=== PATIENT | female | born 1965 | race Caucasian/White ===

== ENCOUNTER 2018-05-20 12:00 | Emergency (ER) | payer BC, OTHER ==
[2018-05-20] MEDS ORDERED: XYLOCAINE 2% HCL 20 ML MDV IJ ONE (12:24)
[2018-05-20] MEDS ORDERED: Xylocaine-Mpf 2% 5 Ml Vial IJ ONE (12:24)
--- NOTE | 2018-05-20 12:24 | ERPHSYRPT ---
- History of Present Illness Time Seen by Provider: 05/20/18 12:15 Source: patient Exam Limitations: clinical condition Patient Subjective Stated Complaint: cut middle finger with scissors grooming a dog.. V cut to the middle finger middle knuckle Triage Nursing Assessment: alert with laceration to middle finger of left hand middle knuckle.. V cut + radial puulse present. bleeding controlled. Physician History: PATIENT GROOMING A DOG SUSTAINED LACERATION OVER THE MIDDLE KNUCKLE OF HER LEFT MIDDLE FINGER. PATIENT COMPLAINS OF PAIN WITH BLEEDING AND DENIES NUMBNESS OR TINGLING IN FINGER. Occurred: just prior to arrival Method of Injury: incised Severity of Pain-Max: none Severity of Pain-Current: none Extremities Pain Location: 3rd finger: left Modifying Factors: Improves With: nothing Associated Symptoms: none Immunizations Up to Date: (6 years) - Review of Systems Constitutional: No Fever, No Chills Respiratory: No Cough, No Dyspnea Cardiac: No Chest Pain, No Edema, No Syncope Abdominal/Gastrointestinal: No Abdominal Pain, No Nausea, No Vomiting, No Diarrhea Genitourinary Symptoms: No Dysuria Musculoskeletal: Injury, No Back Pain, No Neck Pain Skin: No Rash Neurological: No Dizziness, No Focal Weakness, No Sensory Changes Psychological: No Symptoms Endocrine: No Symptoms All Other Systems: Reviewed and Negative - Past Medical History Pertinent Past Medical History: Yes - Past Surgical History Past Surgical History: No - Social History Smoking Status: Current every day smoker Exposure to second hand smoke: No Drug Use: none Patient Lives Alone: No - Female History Hx Now: No - Nursing Vital Signs Nursing Vital Signs: Initial Vital Signs Pulse Rate 83 05/20/18 12:08 Respiratory Rate 16 05/20/18 12:08 Blood Pressure 142/101 05/20/18 12:08 O2 Sat by Pulse Oximetry 98 05/20/18 12:08 Pain Scale Pain Intensity 4 - Physical Exam General Appearance: alert Abdominal Exam: No guarding Back Exam: No vertebral tenderness Hand Exam: normal ROM (SENSATION INTACT TO LIGHT TOUCH AND PIN PRICK), laceration (THERE IS A 1.3CM FLAP LACERATION OVER MCP JOINT DORSUM LEFT MIDDLE FINGER, FULL RANGE OF MOTIN, NO TENDON INVOLVEMENT, NO EVIDENCE OF FOREIGN BODY ) Neuro/Tendon Exam: normal sensation, normal motor functions Mental Status Exam: alert, oriented x 3, cooperative Skin Exam: normal color, warm, dry SpO2 Interpretation: normal SpO2: 98 Oxygen Delivery: Room Air Procedures - Laceration/Wound Repair Finger Wound Location: Left (MIDDLE FINGER) Wound Length (cm): 1.3 Wound's Depth, Shape: superficial, flap Wound Explored: clean Irrigated: Yes Hibiclens Prep: Yes Anesthesia: digital block, 2% Lidocaine Volume Anesthetic (ccs): 4 Wound Repaired With: sutures Suture Size/Type: 5-0 Number of Sutures: 8 Layer Closure?: No Ordered Tests: Active Orders 24 hr Category Date Time Status Splint STAT Care 05/20/18 12:43 Ordered Medication Summary Discontinued Medications Generic Name Dose Route Start Last Admin Trade Name Freq PRN Reason Stop Dose Admin Lidocaine HCl 4 ml 05/20/18 12:24 Xylocaine-Mpf 2% 5 Ml Vial IJ 05/20/18 12:25 STAT ONE - Progress Progress Note: 05/20/18 12:42 TETNUS CURRENT Counseled pt/family regarding: diagnosis - Departure Time of Disposition: 12:50 Departure Disposition: Home Clinical Impression: LACERATION LEFT MIDDLE FINGER Condition: Stable Critical Care Time: No Referrals: NICK RODRÍGUEZ [Primary Care Provider] - Additional Instructions: ANTIBIOTIC KEFLEX 500MG EVERY 8 HOURS FOR 10 DAYS. TYLENOL OR MOTRIN NEEDED FOR PAIN. HAVE STITCHES REMOVED AT 12 DAYS, AND WATCH FOR SIGNS OF INFECTION REDNESS, SWELLING OR DRAINAGE. Prescriptions: Cephalexin Mh 500 mg [Keflex 500 mg] 500 mg PO TID #30 capsule
[2018-05-20] MEDS ORDERED: BACIGUENT PACKET ONE (12:47)
[2018-05-20 12:59] VITALS: BP 144/85; PULSE 76; O2SAT 99
[2018-05-22] MEDS ORDERED: BACIGUENT PACKET TP ONE (11:27)
== END 2018-05-20 13:05 | disposition home or self-care (01) ==
LOC: ED 12:00
PROC: 0HQGXZZ Repair Left Hand Skin, External Approach (ICD-10-PCS; principal; 2018-05-20)
DX: S61.213A Laceration without foreign body of left middle finger without damage to nail, initial encounter (principal); W45.8XXA Other foreign body or object entering through skin, initial encounter; Y93.K3 Activity, grooming and shearing an animal
CPT/HCPCS: 12001; 96372; 99284; A9270-GY

== ENCOUNTER 2020-05-30 09:54 | Emergency (ER) | payer OTHER ==
[2020-05-30 10:31] VITALS: BP 167/101; PULSE 71; O2SAT 98
[2020-05-30] MEDS ORDERED: TORAdol 30 mg Injection IM ONE (10:47)
[2020-05-30] MEDS ORDERED: Phenergan 25 MG INJ IM ONE (10:48)
[2020-05-30] MEDS ORDERED: TORAdol 30 mg Injection ONE (10:52)
[2020-05-30] MEDS ORDERED: Phenergan 25 MG INJ ONE (10:52)
--- NOTE | 2020-05-30 10:53 | ERPHSYRPT ---
- History of Present Illness Time Seen by Provider: 05/30/20 10:06 Source: patient Patient Subjective Stated Complaint: Pt began having a migraine at 0500 Triage Nursing Assessment: Pt brought to the ER by her step mom, hypertensive, rates overall pain as 8/10, denies losing consciousness, no facial droop, hx of migraines, photophobia Physician History: 54 yo wf w MGHA x6hrs. Pain rated 8 at present but up to 10 and described as sharp/pressure. It is worse w light/movement/noise. Pt denies fever/focal weakness/trauma and has a long h/o MGHA. Pain did not respond to Imitrex at home. Quality: pressure, sharpness Head Pain Location: global Severity of Pain-Max: severe Severity of Pain-Current: severe Recent Head Trauma: frequent headaches Modifying Factors: Improves With: exposure to light, movement, noise Associated Symptoms: nausea/vomiting, sensitive to light, No confusion, No dizziness, No fatigue, No facial pain, No fever/chills, No flushing, No light- headedness, No loss of consciousness, No nasal congestion, No nasal drainage, No neck pain, No numbness in legs/feet, No rash, No sweating, No scotoma, No seizures, No sinus infection, No speech problems, No stiff neck, No trouble walking, No vision changes, No visual disturbance, No weakness Previous symptoms: same symptoms as today Allergies/Adverse Reactions: Penicillins Allergy (Intermediate, Verified 05/30/20 10:32) Home Medications: Hydrocodone/Ibuprofen [Vicoprofen 200-7.5 mg Tab] 1 each PO UD 05/30/20 [History] Travel Risk - International Travel Have you traveled outside of the country in past 3 weeks: No - Coronavirus Screening Are you exhibiting any of the following symptoms?: No Close contact with a COVID-19 positive Pt in past 14-21 Days: No - Review of Systems Constitutional: No Symptoms Eyes: Photophobia Ears, Nose, & Throat: No Symptoms Respiratory: No Symptoms Cardiac: No Symptoms Abdominal/Gastrointestinal: No Symptoms Genitourinary Symptoms: No Symptoms Musculoskeletal: No Symptoms Skin: No Symptoms Neurological: Headache Psychological: No Symptoms Endocrine: No Symptoms Hematologic/Lymphatic: No Symptoms Immunological/Allergic: No Symptoms - Past Medical History Pertinent Past Medical History: Yes Neurological History: Migraines Musculoskeletal History: Osteoarthritis - Past Surgical History Past Surgical History: Yes Gastrointestinal: Appendectomy Musculoskeletal: Joint Replacement, Orthopedic Surgery Female Surgical History: Hysterectomy Other Surgical History: 3 back surgeries, total knee - Social History Smoking Status: Current every day smoker Exposure to second hand smoke: No Drug Use: none Patient Lives Alone: No Significant Family History: no pertinent family hx - Female History Hx Now: No - Nursing Vital Signs Nursing Vital Signs: Initial Vital Signs Temperature 98.0 F 05/30/20 10:24 Pulse Rate 71 05/30/20 10:24 Blood Pressure 167/101 05/30/20 10:24 O2 Sat by Pulse Oximetry 98 05/30/20 10:24 Pain Scale Pain Intensity 8 - Physical Exam General Appearance: no apparent distress Eye Exam: PERRL/EOMI, eyes nml inspection Ears, Nose, Throat Exam: normal ENT inspection, TMs normal, pharynx normal, moist mucous membranes Neck Exam: normal inspection, non-tender, supple, full range of motion, No meningismus, No mass, No Brudzinski, No Kernig's Respiratory Exam: normal breath sounds, lungs clear, airway intact Cardiovascular Exam: regular rate/rhythm, normal heart sounds, normal peripheral pulses, No murmur Gastrointestinal/Abdominal Exam: soft, normal bowel sounds Back Exam: normal inspection, normal range of motion, No CVA tenderness, No vertebral tenderness Extremity Exam: normal inspection, normal range of motion Mental Status Exam: alert, oriented x 3, cooperative, 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 Exam: normal hearing, normal speech, PERRL, No abnormal eye position, No abnormal gag reflex, No facial asymmetry, No facial droop, No facial paresthesias, No facial weakness Coordination/Gait Exam: normal finger to nose, normal gait, normal cerebellar function Motor/Sensory Exam: no motor deficit, no sensory deficit, no pronator drift DTR Exam: bicep (R): 2+, bicep (L): 2+ Skin Exam: normal color, warm, dry, No rash Lymphatic Exam: No adenopathy SpO2 Interpretation: normal SpO2: 98 O2 Delivery: Room Air - Course Nursing assessment & vital signs reviewed: Yes Ordered Tests: Medication Summary Discontinued Medications Generic Name Dose Route Start Last Admin Trade Name Freq PRN Reason Stop Dose Admin Ketorolac Tromethamine 60 mg 05/30/20 10:47 05/30/20 10:53 Toradol 30 Mg Injection IM 05/30/20 10:48 60 mg STAT ONE Administration Ketorolac Tromethamine Confirm 05/30/20 10:52 Toradol 30 Mg Injection Administered 05/30/20 10:53 Dose 60 mg .ROUTE .STK-MED ONE Promethazine HCl 25 mg 05/30/20 10:48 05/30/20 10:53 Phenergan 25 Mg Inj IM 05/30/20 10:49 25 mg STAT ONE Administration Promethazine HCl Confirm 05/30/20 10:52 Phenergan 25 Mg Inj Administered 05/30/20 10:53 Dose 25 mg .ROUTE .STK-MED ONE - Progress Progress Note: 05/30/20 11:37 Pain improved w 60mg IM Toradol/25mg IM Phenergan. Pain decreased to a 6, and pt wishes to be discharged. 05/30/20 11:40 BP decreasing before discharge. 05/30/20 14:53 - Departure Departure Disposition: Home Clinical Impression: Migraine Condition: Stable Critical Care Time: No Referrals: NICK RODRÍGUEZ [Primary Care Provider] - Instructions: Headache, Adult (DC) Additional Instructions: Return to ER for increasing pain/focal weakness/Temperature greater than 100.5.
== END 2020-05-30 11:44 | disposition home or self-care (01) ==
LOC: ED 09:54
DX: G43.909 Migraine, unspecified, not intractable, without status migrainosus (principal)
CPT/HCPCS: 96372; 99283; J1885; J2550